=== PATIENT | male | born 1965 | race Two or more races ===

== ENCOUNTER → 2025-06-16 | Outpatient (CLI) | payer BC, SELFPAY ==
--- NOTE | 2025-06-16 13:03 | XR_ITS ---
Examination: Abdomen sonogram, complete Date and time of exam: June 16, 2025, 1330 hours INDICATIONS: Onset left upper abdominal pain beginning 4 days ago. Technique: Multiple real-time grayscale transabdominal sonographic images of the abdomen have been obtained. Findings: Normal gallbladder. Normal common bile duct 0.2 cm Pancreatic head 1.9 cm Aorta not enlarged. Liver 17 cm fatty infiltration Normal hepatopetal portal venous flow Patent IVC Right kidney 11.0 cm renal cortex 1.4 cm Left kidney 10.8 cm renal cortex 1.7 cm 6 mm midpole left renal calculus Mild renal scarring Spleen 10.0 cm IMPRESSION: Normal gallbladder Mild to moderate hepatomegaly fatty infiltration Bilateral renal cortical thinning Mild bilateral renal scar formation 6 mm nonobstructing left renal calculus
== END | disposition home or self-care (01) ==
PROVIDERS: PCP Internal Medicine; Referring Provider Internal Medicine; Visit Provider Internal Medicine
DX: K76.0 Fatty (change of) liver, not elsewhere classified (principal); N20.0 Calculus of kidney; N28.89 Other specified disorders of kidney and ureter
CPT/HCPCS: 76700

== ENCOUNTER → 2025-08-17 | Outpatient (CLI) | payer BC, SELFPAY ==
[2025-08-16 14:03] LABS: Anion Gap 12 (7-16); BUN/Creatinine Ratio 11 Ratio (12-20); Blood Urea Nitrogen 12 mg/dL (9-23); Calcium 9.2 mg/dL (8.3-10.6); Carbon Dioxide 28.2 mMol/L (20.0-31.0); Chloride 104 mMol/L (98-107); Creatinine (Component) 1.1 mg/dL (0.6-1.3); Glucose 98 mg/dL (74-106); Osmolality,Calculated 286 (275-295); Potassium 4.2 mMol/L (3.4-5.1); Sodium 144 mMol/L (136-145); eGFR > 60 See Note
--- NOTE | 2025-08-17 15:00 | XR_ITS ---
Examination: CT abdomen with intravenous contrast. Coronal 2-D reconstructions. Sagittal 2-D reconstructions. Date and time of exam: August 17, 2025, 1546 hours INDICATIONS: Left upper abdominal pain beginning 2 days ago CTDI: vol (mGy): 7.96 DLP: (mGycm): 246 Technique: Axial images of the abdomen have been obtained, 3 mm slice thickness, 60 cc [id number] 2-D sagittal coronal reconstructions Low dose protocols were performed. One or more of the following dose reduction techniques were used; automated exposure control, adjustment of the mA and/or KV according to patient size, use of iterative reconstruction technique. Findings: 4 mm right lobe liver cyst No gallstones Spleen not enlarged No pancreatic or adrenal mass No renal or ureteral calculi, no hydronephrosis Aorta normal size No bowel obstruction or diverticulitis No common hepatic or common bile duct stones No pericecal inflammatory change IMPRESSION: No acute process in the abdomen or pelvis
== END | disposition home or self-care (01) ==
LOC: SCAT 14:27
PROVIDERS: PCP Internal Medicine; Referring Provider Internal Medicine; Visit Provider Internal Medicine
DX: Z80.0 Family history of malignant neoplasm of digestive organs (principal); R10.12 Left upper quadrant pain; N20.0 Calculus of kidney
CPT/HCPCS: 36415; 74160; 80048; A4649; Q9967